=== PATIENT | male | born 1965 | race Two or more races ===

== ENCOUNTER 2018-01-15 14:25 | Emergency (ER) | payer OTHER ==
[~2018-01-15] VITALS: Ht 180.3 cm; Wt 95.3 kg
[2018-01-15] MEDS ORDERED: PAROXETINE HCL20 MG (15:21)
[2018-01-15] MEDS ORDERED: ATARAX25 MG (15:22)
[2018-01-15] MEDS ORDERED: BUSPIRONE HCL10 MG (15:22)
[2018-01-15] MEDS ORDERED: GABAPENTIN300 MG (15:23)
[2018-01-15] MEDS ORDERED: HYDROMORPH (15:23)
[2018-01-15] MEDS ORDERED: XERMELO250 MG (15:23)
[2018-01-15] MEDS ORDERED: OCTREOTIDE100 MCG/2 (15:24)
[2018-01-15] MEDS ORDERED: RIZATRIPTAN10 M1 (15:24)
[2018-01-15] MEDS ORDERED: IMITREX100 MG (15:25)
[2018-01-15] MEDS ORDERED: OMEPRAZOLE40 MG (15:25)
[2018-01-15] MEDS ORDERED: OXYCODONE HCL E10 MG (15:26)
== END 2018-01-15 18:58 | disposition home or self-care (01) ==
LOC: ER 14:25
DX: B37.0 Candidal stomatitis (principal)